=== PATIENT | male | born 1975 | race Caucasian/White ===

== ENCOUNTER 2016-11-19 10:54 | Emergency (ER) | payer MEDICARE ==
[~2016-11-19] VITALS: Ht 172.7 cm; Wt 102.3 kg
[~2016-11-19 10:54] MED LIST: CLON0.2T PO; ONDA-54 PO; ONDA4TAB6 PO; PROM25SU46 RC; PROM25TA14 PO
[2016-11-19 10:55] VITALS: BP 166/87; PULSE 74; RESP 20; O2SAT 96
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
[2016-11-19] MEDS ORDERED: 0.9% Sodium Chloride 1,000 ML IV ONE (11:00)
[2016-11-19] MEDS ORDERED: Ondansetron 2 mg/mL 2 mL Inj IVPUSH ONE (11:00)
[2016-11-19 11:20] LABS: BASOPHILS % (AUTO) 0.4 % (0-3); MONOCYTES % (AUTO) 5.6 % (4-12); Mean Corpuscular Volume 70.7 fL (81-100); NEUTROPHILS % (AUTO) 80.3 % (40-74); Platelet Count 357 bil/L (150-400)
[2016-11-19 11:47] LABS: Magnesium 1.9 mg/dL (1.6-2.6)
[2016-11-19] MEDS ORDERED: ONDA8TAB10 PO (13:45)
[2016-11-19 14:06] VITALS: BP 145/75; PULSE 76; RESP 20; O2SAT 94
== END 2016-11-19 14:07 | disposition home or self-care (01) ==
LOC: EDBD 10:54 → SED 10:54
DX: R11.2 Nausea with vomiting, unspecified (principal); G47.00 Insomnia, unspecified; R05 Cough; R07.9 Chest pain, unspecified; I10 Essential (primary) hypertension; F17.200 Nicotine dependence, unspecified, uncomplicated
CPT/HCPCS: 36415; 80053; 83690; 83735; 85025; 96361; 96374; 99284; J2405; J7030

== ENCOUNTER 2017-03-10 04:26 | Emergency (ER) | payer MEDICARE ==
[~2017-03-10] VITALS: Ht 172.7 cm; Wt 90.9 kg
[~2017-03-10 04:26] MED LIST changes: +ONDA8TAB10 PO
[2017-03-10 04:34] VITALS: BP 178/103; PULSE 72; RESP 22; O2SAT 97
[2017-03-10] MEDS ORDERED: 0.9% Sodium Chloride 1,000 ML IV ONE (04:36)
--- NOTE | 2017-03-10 04:36 | ED.REPORT ---
HPI-Abd Pain M 40 and Over Date of Service March 10, 2017 ED Provider: Dale Marley MD Pt is a 41 year old male with a hx of HTN and chronic pain presenting to the ED complaining of abdominal pain and vomiting onset today. He reports that he has had these symptoms before. Pt denies THC use today. Nursing Notes Stated Complaint: ABDOMINAL PAIN,VOMITING Chief Complaint: Male Abdominal Pain Nursing Notes Reviewed: Yes Allergies: Coded Allergies: No Known Allergies (Unverified , 04/14/16) Scheduled Clonidine (Clonidine) 0.2 Mg Tablet 0.2 MG PO HS Ondansetron ODT (Ondansetron ODT) 8 Mg Tab.rapdis 8 MG PO QID Ondansetron ODT (Ondansetron ODT) 8 Mg Tab.rapdis 8 MG PO TID Scheduled PRN Ondansetron (Zofran) 4 Mg Tablet 4 MG PO Q4H PRN PRN For Nausea Ondansetron (Ondansetron) 8 Mg Tablet 8 MG PO QID PRN PRN For Nausea Ondansetron (Zofran) 4 Mg Tablet 4 MG PO Q4H PRN PRN For Nausea Promethazine (Promethazine) 25 Mg Tablet 25 MG PO Q6H PRN PRN For Nausea Promethazine HCl (Phenergan) 25 Mg Supp.rect 25 MG RC QID PRN PRN For Nausea General Time Seen by MD: 04:34 Chief Complaint Abdominal pain Hx Obtained From: Patient Arrived By: Ambulance Sudden in Onset?: No Onset Occurred: Just prior to arrival Symptom Duration: Since onset Progression since Onset: Constant Location: : Diffuse Quality: Painful Severity: Current: Mild Severity: Maximum: Moderate Recent Healthcare: No recent doctor visit, No recent hospitalization Similar Sx Previous: Yes Past Medical History Past Medical History chronic back and neck pain - on PO Dilaudid and Fentanyl patches h/o alcoholic cirrhosis Reports: Hypertension Past Surgical History denies Family History noncontributory Smoking History Current Every Day Smoker Social History Alcohol Use: In recovery Drug Use: THC Other Social History: Local resident Occupation , no work or school at present Ambulatory Status Independent Review of Systems GI: Reports: Abdominal pain, Nausea, Vomiting Complete sys rev & neg: except as marked. Physical Exam Initial Vital Signs Vital Signs (First) Date Time Temp Pulse Resp B/P Pulse Ox O2 Delivery O2 Flow Rate FiO2 03/10/17 04:34 37.2 72 22 178/103 97 Room Air Initial VS: Reviewed, Vital signs abnormal Head / Eyes: Atraumatic, Normocephalic, PERRL ENT: Mucous membranes moist, Conjunctiva normal, No scleral icterus Extremities: Vascular intact, Neuro intact, No swelling, No tenderness Skin: Warm, Dry, No cyanosis Neurologic: Alert, Oriented, Nonfocal Psychiatric: Mood/affect normal, Behavior normal, Normal thought content General/Constitutional: Awake, Alert Respiratory / Chest: Breath sounds NL, Breath sounds = bilat, No respiratory distress, No rales, No rhonchi, No wheezing Abdomen: Atraumatic, Soft, Non-tender Back: Inspection NL, Full range of motion Interpretation & Diagnostics Lab Results Interpretation Result Diagram: 03/10/17 0504 03/10/17 0504 Test 03/10/17 05:04 White Blood Count 16.4th/mm3 (3.8-10.1) Red Blood Count 5.05mil/mm3 (4.40-5.80) Hemoglobin 11.0g/dL (13.8-17.2) Hematocrit 36.1% (41.0-50.0) Mean Corpuscular Volume 71.5fL (81-100) Mean Corpuscular Hemoglobin 21.8pg (27.0-35.0) Mean Corpuscular Hemoglobin Concent 30.5% (32.0-37.0) Red Cell Distribution Width 18.8% (12.3-15.4) Platelet Count 507bil/L (150-400) Neutrophils (%) (Auto) 88.2% (40-74) Lymphocytes (%) (Auto) 5.4% (14-46) Monocytes (%) (Auto) 4.9% (4-12) Eosinophils (%) (Auto) 0.9% (0-5) Basophils (%) (Auto) 0.4% (0-3) Sodium Level 145mEq/L (134-144) Potassium Level 3.4mEq/L (3.5-5.2) Chloride Level 106mEq/L (97-108) Carbon Dioxide Level 25mmol/L (18-29) Blood Urea Nitrogen 15mg/dL (6-24) Creatinine 0.83mg/dL (0.76-1.27) Estimat Glomerular Filtration Rate 107mL/min (>59) Glucose Level 156mg/dL (60-99) Calcium Level 9.6mg/dL (8.5-10.1) Magnesium Level 1.9mg/dL (1.6-2.6) Total Bilirubin 0.3mg/dL (0.0-1.2) Aspartate Amino Transf (AST/SGOT) 13U/L (0-50) Alanine Aminotransferase (ALT/SGPT) 9U/L (0-44) Alkaline Phosphatase 73U/L (25-150) Total Protein 7.6g/dL (6.4-8.4) Albumin 4.2g/dL (3.4-5.0) Lipase 27U/L (13-60) Hold Donis Top Tube Received (Received) Lab Results Interpretation: Elevated white blood count, mild anemia, elevated platelets, Re-Eval/Medical Decision Med Decision/Clinical Course 41-year-old male who presents with cyclical vomiting. He denies being a regular marijuana user. He was hydrated, and treated with Phenergan and Benadryl with resolution of his symptoms. He does have a tolerated white blood count but no specific evidence of an infectious process. Time of Eval: 06:29 Patient Status: Condition improved Re-Evaluation/Progress Note: Pt reports that he is feeling a little better, and that his nausea is almost resolved. Discussed plan for discharge. Pt understands and agrees. Counseled Regarding: Diagnosis, Lab results, Need for follow-up, When/why to return to ED Discharge & Departure Primary Impression: Vomiting Vomiting type: unspecified Vomiting Intractability: non-intractable Nausea presence: with nausea Qualified Code: R11.2 - Nausea with vomiting, unspecified Disposition: Home Vital Signs - All Vital Signs Date Time Temp Pulse Resp B/P Pulse Ox O2 Delivery O2 Flow Rate FiO2 03/10/17 09:07 68 16 183/100 97 Room Air 03/10/17 06:56 63 16 197/98 95 03/10/17 04:34 37.2 72 22 178/103 97 Room Air )( All Prior VS Reviewed: Yes Condition: Improved Patient Instructions: Acute Nausea and Vomiting (ED) Additional Instructions: You received Phenergan and Benadryl and a GI cocktail. Clear liquids today. Ondansetron 8 mg dissolved orally 3 times a day as needed for nausea, #30. Follow-up with your doctor as needed for persistent symptoms. Referrals: NOPCP (PCP) [facility] Trena Attestation Portions of this note were transcribed by Janna Sparks. I, Dr. Marley personally performed the history, physical exam and medical decision-making; I reviewed and confirmed the accuracy of the information in the transcribed note. Signed by: Trena Lau, 03/10/2017 at 0645. copies to: [facility] Dale Marley MD March 10, 2017 04:36 JANNA SPARKS March 10, 2017 04:42
[2017-03-10] MEDS ORDERED: Ondansetron 2 mg/mL 2 mL Inj IVPUSH PRN (04:40)
[2017-03-10] MEDS ORDERED: Promethazine Inj 25 MG in 0.9% Sodium Chloride-Pha MIX 100 ML IV ONE ×2 (04:45→06:35)
[2017-03-10 05:11] LABS: BASOPHILS % (AUTO) 0.4 % (0-3); EOSINOPHILS % (AUTO) 0.9 % (0-5); MONOCYTES % (AUTO) 4.9 % (4-12); Mean Corpuscular Hemoglobin 21.8 pg (27.0-35.0); Mean Corpuscular Volume 71.5 fL (81-100); NEUTROPHILS % (AUTO) 88.2 % (40-74); Platelet Count 507 bil/L (150-400)
[2017-03-10] MEDS ORDERED: LidocaineVisc 2%:Antacid 1:1 10 mL Syringe PO ONE (05:15)
[2017-03-10] MEDS ORDERED: fentaNYL-PF 50 mCg/mL 2 mL Inj IVPUSH ONE ×2 (05:15→06:35)
[2017-03-10 05:33] LABS: Magnesium 1.9 mg/dL (1.6-2.6)
[2017-03-10] MEDS: 0.9% Sodium Chloride 1,000 ML IV ONE ×2 (06:15→06:41)
[2017-03-10] MEDS ORDERED: ONDA8TAB10 PO (06:47)
[2017-03-10 06:56] VITALS: BP 197/98; PULSE 63; RESP 16; O2SAT 95
[2017-03-10 09:07] VITALS: BP 183/100; PULSE 68; RESP 16; O2SAT 97
== END 2017-03-10 09:08 | disposition home or self-care (01) ==
LOC: SED 04:26
DX: R11.2 Nausea with vomiting, unspecified (principal); R10.9 Unspecified abdominal pain; I10 Essential (primary) hypertension; F17.200 Nicotine dependence, unspecified, uncomplicated
CPT/HCPCS: 36415; 80053; 83690; 83735; 85025; 96361; 96374; 96375; 96376; 99285; J1200; J2405; J2550; J3010; J7030